=== PATIENT | male | born 1970 | race Caucasian/White ===

== ENCOUNTER 2018-07-26 15:26 | Emergency (ER) | payer SELFPAY ==
--- NOTE | 2018-07-26 15:40 | NUR ---
1535---1ST CALL, NO ANSWER. PATIENT CALLED FOR TRIAGE 1537---2ND CALL, NO ANSWER 1540---PATIENT LEFT WITHOUT BEING SEEN BY DR. PAYNE. NO FURTHER CARE PROVIDED FOR PATIENT.
== END 2018-07-26 15:40 | disposition left against medical advice (07) ==
LOC: MED 15:26
DX: Z53.21 Procedure and treatment not carried out due to patient leaving prior to being seen by health care provider (principal)